=== PATIENT | male | born 2000 | race Caucasian/White ===

== ENCOUNTER 2023-10-18 01:03 | Emergency (ER) | payer MEDICAID ==
[~2023-10-18] VITALS: Ht 172.7 cm; Wt 66.0 kg
[2023-10-18 01:31] VITALS: BP 124/76; PULSE 95; RESP 18; TEMP 98.2; O2SAT 98
== END 2023-10-18 03:59 | disposition left against medical advice (07) ==
LOC: ER 01:15
DX: M54.9 Dorsalgia, unspecified (principal); Z53.21 Procedure and treatment not carried out due to patient leaving prior to being seen by health care provider
CPT/HCPCS: 99281